=== PATIENT | female | born 1945 | race Caucasian/White ===

== ENCOUNTER 2023-05-05 09:22 | Outpatient (CLI) | payer MEDICARE, BC, SELFPAY ==
[2023-05-05 10:56] LABS: Alanine Aminotransferase 18 U/L (0-33); Albumin Level 4.2 g/dL (3.5-5.2); Alkaline Phosphatase 64 U/L (35-105); Aspartate Amino Transferase 19 U/L (0-32); Chol HDL Ratio 4.76 mg/dL (0.0-4.40); Cholesterol 262 mg/dL (0-200); Globulin 2.7 g/dL (1.3-4.6); HDL Cholesterol 55 mg/dL (60-100); LDL Cholesterol Calculated 164 mg/dL (50-129); LDL HDL Ratio 2.98 RATIO (0.00-3.22); Total Bilirubin 0.5 mg/dL (0.15-1.2); Total Protein 6.9 g/dL (6.6-8.7); Triglycerides 217 mg/dL (0-150)
== END 2023-05-05 09:23 | disposition home or self-care (01) ==
PROVIDERS: PCP Family Medicine; Visit Provider Family Medicine
DX: E78.00 Pure hypercholesterolemia, unspecified (principal); I10 Essential (primary) hypertension; I25.10 Atherosclerotic heart disease of native coronary artery without angina pectoris
CPT/HCPCS: 36415; 80061; 80076

== ENCOUNTER 2023-11-04 08:13 | Outpatient (CLI) | payer MEDICARE, BC, SELFPAY ==
[2023-11-04 08:34] LABS: Basophils # 0.1 10^3/uL (0.0-0.1); Eosinophils # 0.4 10^3/uL (0.0-0.8); Eosinophils % 5.5 %; Hematocrit 46.3 % (36-47); Lymphocytes % 39.1 %; Mean Corpuscular HGB Conc 31.5 g/dL (30-55); Mean Platelet Volume 10.3 fL (7.4-10.4); Monocytes # 0.7 10^3/uL (0.2-0.9); Monocytes % 9.4 %; Neutrophils # 3.42 10^3/uL (1.8-7.7); Neutrophils % 44.9 %; Nucleated Red Blood Cells % 0 %; Platelet Count 248 10^3/cmm (157-399); Red Blood Count 5.03 10^6/uL (3.85-5.65); White Blood Count 7.64 10^3/uL (3.29-11.43)
[2023-11-04 08:53] LABS: Anion Gap 13.6 (5-19); Blood Urea Nitrogen 14 mg/dL (8-23); Calcium 9.3 mg/dL (8.5-10.5); Carbon Dioxide 28 mmol/L (22-29); Chloride 105 mmol/L (98-107); Chol HDL Ratio 2.58 mg/dL (0.0-4.40); Cholesterol 160 mg/dL (0-200); Glucose 94 mg/dL (65-115); HDL Cholesterol 62 mg/dL (60-100); LDL Cholesterol Calculated 74 mg/dL (50-129); LDL HDL Ratio 1.19 RATIO (0.00-3.22); Osmolality Calculated 294 mOsm/kg (285-295); Potassium 4.6 mmol/L (3.5-5.1); Sodium 142 mmol/L (136-145); Triglycerides 120 mg/dL (0-150)
== END 2023-11-04 08:14 | disposition home or self-care (01) ==
LOC: LAB 08:16
PROVIDERS: PCP Family Medicine; Visit Provider Internal Medicine Cardiovascular Disease
DX: E78.00 Pure hypercholesterolemia, unspecified (principal)
CPT/HCPCS: 36415; 80048; 80061; 85025

== ENCOUNTER 2024-05-04 08:48 | Outpatient (CLI) | payer MEDICARE, BC, SELFPAY ==
[2024-05-04 09:30] LABS: Alanine Aminotransferase 24 U/L (0-33); Albumin Level 4.2 g/dL (3.5-5.2); Alkaline Phosphatase 60 U/L (35-105); Aspartate Amino Transferase 19 U/L (0-32); Chol HDL Ratio 2.81 mg/dL (0.0-4.40); Cholesterol 174 mg/dL (0-200); Globulin 2.6 g/dL (1.3-4.6); HDL Cholesterol 62 mg/dL (60-100); LDL Cholesterol Calculated 85 mg/dL (50-129); LDL HDL Ratio 1.37 RATIO (0.00-3.22); Total Bilirubin 0.5 mg/dL (0.15-1.2); Total Protein 6.8 g/dL (6.6-8.7); Triglycerides 133 mg/dL (0-150)
== END 2024-05-04 08:49 | disposition home or self-care (01) ==
LOC: LAB 08:52
PROVIDERS: PCP Family Medicine; Visit Provider Internal Medicine Cardiovascular Disease
DX: E78.00 Pure hypercholesterolemia, unspecified (principal); I10 Essential (primary) hypertension; I25.10 Atherosclerotic heart disease of native coronary artery without angina pectoris
CPT/HCPCS: 36415; 80061; 80076

== ENCOUNTER 2025-05-06 08:28 | Outpatient (CLI) | payer MEDICARE, BC, SELFPAY ==
[2025-05-06 09:04] LABS: Alanine Aminotransferase 15 U/L (0-33); Albumin Level 4.3 g/dL (3.5-5.2); Alkaline Phosphatase 55 U/L (35-105); Aspartate Amino Transferase 19 U/L (0-32); Cholesterol 312 mg/dL (0-200); Globulin 2.8 g/dL (1.3-4.6); HDL Cholesterol 72 mg/dL (60-100); Total Protein 7.1 g/dL (6.6-8.7); Triglycerides 144 mg/dL (0-150)
== END 2025-05-06 08:29 | disposition home or self-care (01) ==
LOC: LAB 08:32
PROVIDERS: PCP Family Medicine; Visit Provider Internal Medicine Cardiovascular Disease
DX: E78.00 Pure hypercholesterolemia, unspecified (principal)
CPT/HCPCS: 80061; 80076

== ENCOUNTER → 2025-06-14 10:45 | Outpatient (BNVA) | payer MEDICARE, BC, SELFPAY | PROVIDERS: PCP Family Medicine; Visit Provider Internal Medicine Cardiovascular Disease | DX: E78.019 Familial hypercholesterolemia, unspecified (principal); I10 Essential (primary) hypertension; Z88.8 Allergy status to other drugs, medicaments and biological substances; Z95.1 Presence of aortocoronary bypass graft; Z87.891 Personal history of nicotine dependence; R07.9 Chest pain, unspecified; Z53.8 Procedure and treatment not carried out for other reasons | CPT/HCPCS: 93005; 99204 ==